=== PATIENT | female | born 1975 | race African-American/Black ===

== ENCOUNTER → 2016-12-23 | Outpatient (CLI) | payer MEDICARE, OTHER ==
[~2016-12-23] MED LIST: AMITIZA8 MCG PO; AMLODIPINE BESYL5 MG PO; ANEXSIA 7.5/3251 TA1 PO; ANTACID650 MG PO; B COMPLEX-VITA1 EACH PO; B-COMPLEX WITH1 EACH PO; BACITRACIN15 GM OINT TOP; BACTROBAN22 GM TP; BISACODYL5 M1 PO; COUMADIN PO; COUMADIN1 MG PO; COUMADIN4 MG PO; COUMADIN5 MG PO; COUMADIN6 MG PO; CRANBERRY500 M1 PO; CRANBERRY500 MG PO; CUBICIN IV; CULTURELLE CAP1 EAC1 PO; CULTURELLE CAP1 EACH PO; CULTURELLE IMM1 EACH PO; CULTURELLE KID1 EACH PO; DITROPAN; DITROPAN PO; DITROPAN XL PO; DITROPAN5 MG PO; DOCUSATE SODIU100 MG PO; DSS100 MG PO; FIBER500 MG PO; FLORASTOR250 M1 PO; FOLIC ACID PO; FOLIC ACID1 MG PO; GENTAMICIN100 MG/10; GENTLE LAXATIVE10 MG PR; HYDROCODON-ACE1 EAC9 PO; HYDROCODONE/APA1 T16 PO; KEPPRA500 M2 PO; LEVETIRACETAM250 MG PO; LEVOTHYROXINE25 MC1 PO; LEVOTHYROXINE25 MCG PO; LEVOTHYROXINE75 MCG PO; LINZESS145 MCG PO; LORTAB 7.5-3251 EACH PO; LYRICA PO; LYRICA100 MG PO; LYRICA200 MG PO; LYRICA25 MG PO; LYRICA50 MG PO; MAG-OXIDE PO; MAGOX 400400 MG PO; MEDROL PO; METOPROLOL SUCC25 MG PO; NEBCIN80 MG/2 ML IV; NEPHROCAPS1 CAP PO; NORCO 7.5-3251 EACH PO; NORVASC2.5 MG PO; OXYBUTYNIN5 MG/BOTTL PO; PANTOPRAZOLE SO40 MG PO; PERCOCET 5/321 UDTAB PO; PRENATAL S PO; PRENATAL VITAMI1 TA4 PO; PRENATAL VITAMI1 TA5 PO; PRO-AMATINE5 M1 PO; PROAMATINE10 MG PO; PROAMATINE2.5 MG PO; PROBIOTIC1 EAC3 PO; PROCRIT2000 U/ML; PROTONIX PO; RENAL SOFTGEL1 MG PO; RENALPREN SOFTGE1 MG PO; RENVELA800 MG PO; REQUIP2 MG PO; REZYST250 MG PO; SENSIPAR30 MG PO; SIMBRINZA 1%-0.28 ML; SIMBRINZA 1%-0.28 ML OS; SOD BICARBONATE PO; SYNTHROID25 MCG PO; TOPAMAX25 MG PO; TOPAMAX50 MG PO; VANCOMYCIN HCL1 GM IV; WARFARIN SODIUM1 M1 PO; ZINC SULFATE PO; ZINC SULFATE220 M1 PO; ZINC50 M1 PO; [UNRECOGNIZED DRUG - OTHER] PO
--- NOTE | ~2016-12-23 | US135 ---
[facility] A Service of [facility] RADIOLOGY TEXT RESULTS PATIENT: JUSTINE MARTEL LOCATION: CNIV : [birth year] UNIT #: [id number] AGE: [address]: Giuseppe Tilley MD SEX: F ORDER DR: [id number] [facility] [address] [place], [place] [address] [id number] O MR#: [id number] Acc #: [id number] NAME: JUSTINE MARTEL. : 1975 SEX: F STUDY DATE/TIME: 12/23/2016 12:15 UNIT: CNIV ROOM: STUDY DESCRIPTION: US U/L Ext Art Study Comp Oniel Attending Physician: Giuseppe Tilley M.D. Referring Physician: Giuseppe Tilley M.D. Ordering Physician: Giuseppe Tilley M.D. Primary Care Physician: Nella Bernal MEDICAL IMAGING REPORT This report is preliminary unless electronic signature is present EXAM Lower extremity arterial segmental pressures date of examination 12/23/2016 HISTORY Claudication. FINDINGS The right brachial pressure is 101. The left brachial pressure was not measured. The right upper thigh pressure is 86, lower thigh 81, calf 69, dorsalis pedis 75, posterior tibial 0, and toe 40 for an ankle to brachial index of 0.74. The left upper thigh pressure is 116, lower thigh 94, calf 78, dorsalis pedis 56, posterior tibial 73, and toe 92 for an ankle to brachial index of 0.72. Pulse volume recording tracings demonstrate dmaping of the amplitude of the signal at all levels in both legs. IMPRESSION Moderate ischemia of both legs. Ankle to brachial index is 0.74 on the right and 0.72 on the left. 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 Dictated by... Que Nunn M.D. THIS IS AN ELECTRONICALLY VERIFIED REPORT [facility] A Service of [facility] RADIOLOGY TEXT RESULTS PATIENT: JUSTINE MARTEL LOCATION: CNIV : [birth year] UNIT #: [id number] AGE: [address]: Giuseppe Tilley MD SEX: F ORDER DR: Que Nunn M.D. at 12/24/2016 7:41 AM STEPHEN/rnr TD: 12/23/2016 18:40 JOB #: [id number] MEDICAL IMAGING REPORT Page 1 of 1 COPY
== END | disposition home or self-care (01) ==
LOC: CNIV 12:04
DX: I73.9 Peripheral vascular disease, unspecified (principal); I74.5 Embolism and thrombosis of iliac artery; I74.3 Embolism and thrombosis of arteries of the lower extremities
CPT/HCPCS: 93923

== ENCOUNTER → 2017-01-20 | Day surgery (SDC) | payer MEDICARE, OTHER ==
--- NOTE | ~2017-01-20 | OR ---
Unit #: [id number] #: [id number] Patient: JUSTINE MARTEL [id number] [address] [address] [id number] O MR#: [id number] NAME: JUSTINE MARTEL. ROOM: Date of Procedure: 01/20/2017 Admission Date: 01/20/2017 Surgeon: Tor Stark M.D. : 1975 Attending Physician: Tor Stark M.D. Primary Care Physician: Nella Bernal OPERATIVE REPORT JOB NOTE: CC: PRIMARY CARE PHYSICIAN PROCEDURE PERFORMED Colonoscopy to cecum. INDICATIONS New onset constipation, undergoing colonoscopy for evaluation. MEDICATIONS Monitored anesthesia. POSTOPERATIVE FINDINGS 1. Normal colon exam to cecum. No polyps, masses, or colitis. 2. Internal hemorrhoids. PLAN Continue Linzess for now. We will add MiraLAX. DESCRIPTION OF PROCEDURE The patient was explained of the procedure, risks, and benefits along with risks and benefits of anesthesia. She was brought to the endoscopy room. Propofol anesthesia was given. Rectal exam was done, which was normal. Colonoscope was lubricated, passed up the rectum, advanced under direct vision all the way to the cecum. Cecum was identified by ileocecal valve and appendiceal orifice. Then, I started to pull the scope out carefully looking. No polyps, masses, or colitis. I retroflexed in the rectum, internal hemorrhoids noted. Gently the scope was pulled out. She tolerated it well. Dictated by... Snehal Soler/cedrick TD: 01/20/2017 11:14 JOB #: [id number] Unit #: [id number] #: [id number] Patient: JUSTINE MARTEL OPERATIVE REPORT Page 1 of 1 X Tor Stark MD X PROCEDURE OPERATIVE NOTE
== END | disposition home or self-care (01) ==
LOC: COPS 06:01
DX: K59.00 Constipation, unspecified (principal); K64.8 Other hemorrhoids; H54.41 Blindness, right eye, normal vision left eye; N18.9 Chronic kidney disease, unspecified; E66.01 Morbid (severe) obesity due to excess calories; Z68.41 Body mass index [BMI] 40.0-44.9, adult; Z87.01 Personal history of pneumonia (recurrent); Z88.5 Allergy status to narcotic agent; Z88.8 Allergy status to other drugs, medicaments and biological substances; Z79.01 Long term (current) use of anticoagulants; Z79.899 Other long term (current) drug therapy; Z93.0 Tracheostomy status; Z99.2 Dependence on renal dialysis; Z98.890 Other specified postprocedural states; Z89.421 Acquired absence of other right toe(s)

== ENCOUNTER 2017-02-04 23:15 | Inpatient (IN) | payer MEDICARE, OTHER ==
[~2017-02-04] VITALS: Ht 162.6 cm; Wt 117.5 kg
--- NOTE | ~2017-02-04 | DS ---
Unit #: [id number] #: [id number] Patient: JUSTINE MARTEL [id number] [address] [address] [id number] I MR#: [id number] NAME: JUSTINE MARTEL. ROOM: 325 Age: 41 Sex: F Admission Date: 02/05/2017 : 1975 Discharge Date: 02/12/2017 Attending Physician: Ivonne Alicea M.D. Primary Care Physician: Nella Bernal DISCHARGE SUMMARY DISCHARGE DIAGNOSIS Fever. DISCHARGE MEDICATIONS 1. Medrol Dosepak. 2. Midodrine 10 mg t.i.d. 3. Magnesium oxide 400 mg b.i.d. 4. Coumadin 6 mg p.o. daily. 5. Keppra 500 mg p.o. b.i.d. 6. Lyrica 200 mg p.o. b.i.d. 7. Requip 2 mg at bedtime. 8. Simbrinza eyedrops daily b.i.d. 9. Linzess 145 mcg p.o. daily. 10. Zinc sulfate 220 mg daily. 11. Sensipar 30 mg daily. 12. Percocet 5/325 mg 1 tablet q.6 h. p.r.n. 13. Protonix 40 mg daily. 14. Levothyroxine 25 mcg daily. 15. Nephrocaps daily. 16. Vancomycin per pharmacy dosing with hemodialysis treatment until 02/18/2017. DISPOSITION Going home per family request, [facility] to follow the patient at home. CONSULTANTS Dr. Vo, pulmonary. Dr. Staples, infectious disease. DIAGNOSTIC DATA IMAGING: Chest x-ray on admission, no definite active disease. LABORATORY: Blood cultures from 02/05/2017 show 1 or 2 coagulase negative staph species. Repeat blood culture so far negative. Stool culture negative for c-diff. HISTORY OF PRESENT ILLNESS/HOSPITAL COURSE Please refer to history and physical done my colleague for initial presentation for this patient. Fever: Questionable line sepsis and questionable bacteremia. Most likely secondary to skin contaminant. Status post infectious disease evaluation. Infectious disease recommends to continue vancomycin with hemodialysis Unit #: [id number] #: [id number] Patient: JUSTINE MARTEL treatment until 02/18/2017. History of Klippel-Trenaunay syndrome. Chronic hypertension: Continue midodrine. Questionable pneumonia: Status post pulmonary evaluation. Stable to be discharged. Chest x-ray unremarkable. Endstage renal disease: Continue hemodialysis per nephrology. Anemia of chronic disease: Discharge hemoglobin 9.8, hematocrit 29.4. History of DVT of chronic anticoagulation. Continue Coumadin. Monitor INR per home health. DISPOSITION Home. FOLLOWUP 1. Follow up with primary care physician next week. 2. Nephrology with hemodialysis. Dictated by... Snehal Go/lucho TD: 02/12/2017 07:05 JOB #: [id number] DISCHARGE SUMMARY Page 1 of 1 X Arthur Merritt MD X DISCHARGE SUMMARY
--- NOTE | ~2017-02-04 | CO ---
Unit #: [id number] #: [id number] Patient: JUSTINE MARTEL [id number] [address] [place], [place] [address] [id number] I MR#: [id number] NAME: JUSTINE MARTEL. ROOM: [facility] Age: 41 Sex: F Admission Date: 02/05/2017 : 1975 Attending Physician: Ivonne Alicea M.D. Primary Care Physician: Nella Bernal Consultation Date: 02/06/2017 CONSULTATION REPORT REASON FOR CONSULTATION Dialysis management. HISTORY The patient is a 41-year-old female, well known to the renal service, with a history of underlying Bilumsw-Zpqgwpjzf-Omkhl syndrome and ESRD on maintenance hemodialysis. The patient was admitted to the hospital yesterday following hypotension. On admission she was febrile. The patient's blood pressures were low at about 56/35. The patient has a history of chronic hypotension and is on midodrine for the same. However, the patient's blood pressures were lower than usual, and she was admitted for further evaluation. On admission the patient received a liter of normal saline in the ER. She also received vancomycin, Zithromax and Zosyn and was admitted to the ICU for pressor support. The patient is currently on Tate-Synephrine via a left IJ tunnelled dialysis catheter. The patient has a left IJ tunnelled dialysis catheter for dialysis. She has had multiple episodes of recurrent infections in this catheter over the years. The patient has poor vascular access and has hemihypertrophy that prevents us from placing a catheter on her right side. The patient recently, a few months ago, at [facility] had a catheter exchange done over a guidewire for a similar presentation. Currently the patient is lethargic and sleepy. She is maintained on pressors. She is mildly febrile. No events of shortness of breath, desaturation. She is tolerating the Tate-Synephrine, and her MAPs are in the 70s. The patient also has chronic thrombocytopenia and has been maintained chronically on warfarin for clots in the past. A CT scan of the abdomen and pelvis in the past has shown possible liver cirrhosis and splenomegaly. PAST MEDICAL HISTORY 1. ESRD, on hemodialysis every Tuesday, Tuesday and Tuesday. 2. Vccmaak-Tikodnmld-Sjobk syndrome. 3. Complications from multiple dialysis vascular accesses. 4. Right-sided hemihypertrophy. 5. Hypotension, chronic. 6. Chronic thrombocytopenia. 7. Chronic anticoagulation. SOCIAL HISTORY The patient is disabled and lives with her mother between care home admissions. She is nonambulatory. MEDICATIONS Unit #: [id number] #: [id number] Patient: DELONTE Medications include levothyroxine, midodrine, zinc, Sensipar, binders as needed, Coumadin, Requip, Lyrica, Mag-Ox, supplements, Protonix. PHYSICAL EXAMINATION VITAL SIGNS: The patient has a low-grade fever. T-max is 100.8. Blood pressure is currently in the MAPs of 75 with a systolic of 96 and diastolic of 54. Heart rate is mildly tachycardic at 106. GENERAL: The patient is lethargic, communicative when woken. No apparent distress. HEENT: Atraumatic. Diffuse erythematous rash across the face, chronic. She has a prosthetic right eye. NECK: No JVD. No lymphadenopathy. LUNGS: Clear to auscultation bilaterally with decreased air entry at the bases. HEART: S1, S2 present. No murmurs, rubs or gallops. Tachycardic. ABDOMEN: Obese, soft, nontender, nondistended. No guarding, rigidity or rebound. EXTREMITIES: Marked swelling of the left side. Patient with left tunnelled dialysis catheter along with left IJ central line placed. DIAGNOSTIC STUDIES LABS: Labs are significant for a white count of 11.4, sodium of 136, potassium 4.9, chloride 105, CO2 21, calcium 7.6, phosphorous 1.2, magnesium 1.9, albumin 3.3. Hemoglobin is 10.5 and platelets of 43. Blood cultures are no growth to date. IMAGING: Chest x-ray is negative. ASSESSMENT AND PLAN 1. ESRD, usual dialysis schedule is Tuesday, Tuesday and Tuesday. The patient's volume status and labs are within normal limits today, and there is no indication for dialysis at this time. 2. Sepsis/shock. The patient's white count is rising, and she has a low-grade fever. Multiple episodes of tunnelled rndeempj-xgzftjpp-amaklao sepsis in the past. Blood cultures are negative for now. Chest x-ray is negative for pneumonia. The patient is currently maintained on antibiotics. ID has been consulted, and I agree with this. The patient may need a dialysis catheter exchange done. It will be very difficult to change the exit site of the dialysis catheter if removed given her poor vascular access issues in the past. Hopefully the patient will respond to antibiotics and will not require a catheter change. 3. Electrolytes. The patient has significant hypophosphatemia. She is not on any binders at this time. We will go ahead and replace sodium phosphate now. 4. Chronic hypotension. The patient is on midodrine and need to consider restarting this. 5. Hwimpxi-Gwlxwwmrl-Cwgvs syndrome. 6. Chronic thrombocytopenia, per primary. PLAN 1. No need for HD today. Will evaluate for (1) in the morning depending on the patient's pressor requirements and blood pressures. Will decide between SLED versus hemodialysis. Continue to wean pressors as possible. Maintain MAPs above 60 given her underlying chronic hypotension. 2. Replace phosphorous. 3. Continue antibiotics. Unit #: [id number] #: [id number] Patient: DELONTESeptember 4. Await cultures. Will closely follow this patient. Thank you for the consultation. Dictated by... Malka Quijano M.D. HERMAN/christie TD: 02/06/2017 11:29 JOB #: [id number] CONSULTATION REPORT Page 1 of 1 X X CONSULTATION REPORT
--- NOTE | ~2017-02-04 | A ---
[facility] Nutrition Therapy DATE: 02/07/17 Patient: JUSTINE MARTEL Physician: LIZZY Address: [address] Room/Bed: [address], Zip: [place] [address] Admit Date: 02/05/17 Date of : [birth year] Height: 5 4 Weight: 264 120 NUTRITIONAL ASSESSMENT: REASON: 1 point nutrition screen risk RE: wound/ Pressure ulcer, also for high BMI documentation 41 yo female admitted for sepsis, hypotension PMH: ESRD on HD, Klippel Trenaunay Delavan Syndrome, HTN, ZAINAB, DVT Anthropometrics: Ht: 5'4" Adm wt: 114 kg BMI: 43.1 Diet: Regular Assessment: Chart reviewed, events noted. 41 yo female admitted for sepsis and hypotension. RD received 1 point from malnutrition nursing screen for a wound/ pressure ulcer, and also documenting high BMI. RN reports that the area on the pt's coccyx/ sacrum is more consistent with a skin tear, and not a stage II pressure ulcer or greater (point received not appropriate). RN reproted at round that the pt consumed 100% of her breakfast, and feeds herself well. Pt received HD today, with h/o ESRD on HD. Please see recommendations below. Recommendations: 1. Add renal/ HH diet restriction due to the pt's PMH and obesity. 2. Consult RD for any further nutritional needs. Respectfully, BRANDI MILLER RD, LD Food and Nutritional Services [facility] cc: client file
--- NOTE | ~2017-02-04 | EKG ---
PATIENT: DELONTESeptember UNIT #: [id number] Ventricular Rate: 141 BPM Atrial Rate: 141 BPM P-R Interval: 116 ms QRS Duration: 74 ms Q-T Interval: 282 ms QTC Calculation(Bezet): 431 ms P Holbrook: 21 degrees Calculated R Holbrook: 12 degrees Calculated T Holbrook: 18 degrees Diagnosis Line: Sinus tachycardia Diagnosis Line: Low voltage QRS Diagnosis Line: Borderline ECG Diagnosis Line: When compared with ECG of 08-JUL-2016 13:09, Diagnosis Line: No significant change was found Diagnosis Line: Confirmed by HUY TIWARI MD ([id number]) on Diagnosis Line: 02/06/2017 4:47:18 PM INTERPRETING MD: RENATA
--- NOTE | ~2017-02-04 | CO ---
Unit #: [id number] #: [id number] Patient: JUSTINE MARTEL [id number] [address] [place], [place] [address] [id number] I MR#: [id number] NAME: JUSTINE MARTEL. ROOM: [facility] Age: 41 Sex: F Admission Date: 02/05/2017 : 1975 Attending Physician: Ivonne Alicea M.D. Primary Care Physician: Nella Bernal Consultation Date: 02/05/2017 CONSULTATION REPORT REASON FOR CONSULTATION Critical care management. CHIEF COMPLAINT 41-year-old female, previous history of Hwosepp-Jmzqyzqxp-Bkawe syndrome, end-stage renal disease on hemodialysis, history of DVT, brought in from the dialysis center with low blood pressure of 56/35 and complaining of fever. Started on IV antibiotics, admitted to Intensive Care Unit. I am seeing the patient at bedside complaining of mild shortness of breath. Denies any nausea, vomiting, diarrhea. REVIEW OF SYSTEMS Positive for pallor. Positive for edema. No cyanosis, no jaundice. The rest as per History of Present Illness. PAST MEDICAL HISTORY 1. End stage renal disease. 2. Blwpgfa-Lspniwtna-Bnudj syndrome. 3. Complication of multiple dialysis and vascular access. 4. Right sided hemihypertrophy. 5. Hypertension. 6. Thrombocytopenia. 7. Obstructive sleep apnea. 8. DVT. 9. Chronic anticoagulation. SOCIAL HISTORY Nonsmoker. No alcohol, no drug abuse. MEDICATIONS As per MAR, has been reviewed. PHYSICAL EXAMINATION VITAL SIGNS: Temperature 98, pulse 87, respirations 12, blood pressure 100/70. NEUROLOGICAL: Awake, alert, oriented. No neuro deficit. HEENT: PERRLA. NECK: Supple. No JVD. CHEST: Bilateral air entry, bilateral mild rhonchi. GI: Nontender, soft. Bowel sounds positive. EXTREMITIES: Positive edema. DIAGNOSTIC STUDIES Unit #: [id number] #: [id number] Patient: JUSTINE MARTEL Labs and imaging has been reviewed. ASSESSMENT AND PLAN 1. Septic shock. 2. End stage renal disease. 3. Thrombocytopenia. 4. Chronic anticoagulation. Plan is to continue patient on broad spectrum IV antibiotic. Continue oxygen, bronchodilator and IV pressors. Patient will be closely monitored. Please see orders for detailed plan. Thank you very much for this consultation. Dictated by... Snehal Clarke TD: 02/07/2017 07:19 JOB #: [id number] CONSULTATION REPORT Page 1 of 1 X Michelle Vo MD X CONSULTATION REPORT
--- NOTE | ~2017-02-04 | OR ---
Unit #: [id number] #: [id number] Patient: JUSTINE MARTEL [address] [address] [id number] I MR#: [id number] NAME: JUSTINE MARTEL. ROOM: [facility] Date of Procedure: 02/05/2017 Admission Date: 02/05/2017 Surgeon: Michelle Vo M.D. : 1975 Attending Physician: Ivonne Alicea M.D. Primary Care Physician: Nella Bernal PROCEDURE OPERATIVE NOTE PROCEDURE Central venous catheter placement. INDICATION Septic shock. PRE-PROCEDURE DIAGNOSIS Septic shock. DETAIL OF THE PROCEDURE After placing patient in a proper position, the left side of the neck was prepped with ChloraPrep. Under all sterile fashion with modified Seldinger technique, under ultrasound guidance, a triple lumen triple venous catheter placed in the left internal jugular central vein. All three ports were flushed and working. Guidewire was removed in toto. Suture was applied to secure the line. A sterile dressing was applied. Post procedure chest x-ray was ordered. No complication happened. Patient tolerated the procedure very well. Dictated by... Snehal Clarke/ankit TD: 02/07/2017 07:26 JOB #: [id number] PROCEDURE OPERATIVE NOTE Page 1 of 1 X Michelle Vo MD PROCEDURE OPERATIVE NOTE
--- NOTE | ~2017-02-04 | HP ---
Unit #: [id number] #: [id number] Patient: JUSTINE MARTEL [id number] [address] [place], [place] [address] [id number] I MR#: [id number] NAME: JUSTINE MARTEL ROOM: 325 Age: 41 Sex: F Admission Date: 02/05/2017 : 1975 Attending Physician: Ivonne Alicea M.D. Primary Care Physician: Nella Bernal HISTORY AND PHYSICAL CHIEF COMPLAINT Low blood pressure post dialysis. HISTORY OF PRESENT ILLNESS The patient is a 41-year-old female who is very well known to me with multiple medical problems. She has a history of Radqorr-Nphxdpvtt-Sbgio syndrome. The patient is on dialysis. She was noted to have low blood pressure after the dialysis. She kind of runs low most of the time. She is on midodrine. The patient was very fatigued and tired and maybe she had a temperature. She does complain of some dizziness. Her appetite is reduced. She does not complain of shortness of breath more than normal. No complaint of chest pain. She does have some foot ulcers. The patient has had multiple bacteremia and vascular access infection in the past. The patient was admitted to the ICU because of possible sepsis. PAST MEDICAL HISTORY 1. Endstage renal disease on hemodialysis. 2. Chronic thrombocytopenia. 3. Chronic anticoagulation therapy for DVT. 4. History of Ecrczwp-Dadzdgnnd-Hnjlx syndrome. 5. History of seizures. 6. History of chronic constipation. 7. History of GERD. 8. History of hypothyroidism. 9. History of obstructive sleep apnea. PAST SURGICAL HISTORY 1. Multiple IV accesses for hemodialysis. 2. 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 3. History of tracheostomy in the past. 4. History of AV shunt placement for dialysis. SOCIAL HISTORY The patient lives at home with her mother. No history of smoking, alcohol or drug abuse. FAMILY HISTORY History of hypertension is present. ALLERGIES Zofran, morphine and labetalol. HOME MEDICATIONS Please refer to medication reconciliation which has been done at length. Unit #: [id number] #: [id number] Patient: JUTSINE MARTEL REVIEW OF SYSTEMS As per history of presenting illness. The patient's mother was not in the room during the examination and questionnaire. PHYSICAL EXAMINATION GENERAL: The patient was admitted to the ICU at [facility], examined in the ICU. VITALS: Blood pressure 107/62, respiratory rate 20, saturations 98%, pulse 70. HEENT: Head is normocephalic. NECK: Supple. CHEST: Decreased air entry bilaterally. Some wheezing is heard. HEART: S1 and S2 positive. Murmur is heard. ABDOMEN: Soft and nontender. Bowel sounds are positive. EXTREMITIES: The patient does have lymphedema which is chronic. SKIN: The patient does have chronic skin issues from her Kqtsugq-Asvvghjht-Kukjv syndrome. NEUROLOGIC: AGRICULTURAL EXTENSION AGENT, the patient is awake, alert and oriented times three. DIAGNOSTIC STUDIES LABORATORY: Lactic acid 3.2, WBC 14.2, bicarb 20, creatinine 6.1. ASSESSMENT The patient was admitted to the ICU with 1. Sepsis. 2. Pneumonia. 3. Hypotension. 4. Fever, source was unknown at this time. Rule out tunnelled catheter infection. History of multiple infections in the past. 5. Endstage renal disease on hemodialysis. 6. History of DVT on anticoagulation therapy. 7. Chronic thrombocytopenia. 8. History of Kdowuiv-Itcprwelc-Owwmj syndrome. PLAN Admit to ICU. Dr. Sood has been consulted for renal hemodialysis. Infectious disease has been consulted. Blood cultures done. Panculture done. Home medications reviewed and adjusted. Dr. Vo has been consulted. Plan of care has been discussed with the patient at length. Dictated by Snehal Kidd TD: 02/23/2017 14:37 JOB #: [id number] Unit #: [id number] #: [id number] Patient: DELONTE HISTORY AND PHYSICAL Page 1 of 1 X Ivonne Alicea MD HISTORY AND PHYSICAL
--- NOTE | ~2017-02-04 | CR72 ---
[facility] A Service of [facility] RADIOLOGY TEXT RESULTS PATIENT: JUSTINE MARTEL LOCATION: [address] : [birth year] UNIT #: [id number] AGE: [address]: Uri Blanco MD SEX: F ORDER DR: [id number] [facility] [address] [facility]. [place], [place] [address] [id number] MR#: [id number] Acc #: [id number] NAME: JUSTINE MARTEL. : 1975 SEX: F STUDY DATE/TIME: 02/05/2017 0:04 UNIT: [facility] ROOM: [facility] STUDY DESCRIPTION: CR Chest Single View Portable Attending Physician: Uri Blanco M.D. Ordering Physician: Perdo Goss M.D. Primary Care Physician: Nella Bernal MEDICAL IMAGING REPORT This report is preliminary unless electronic signature is present EXAM Chest x-ray, 02/05/2017 HISTORY 41-year-old female in the ED with fever, cough and weakness beginning today. TECHNIQUE AP portable upright chest x-ray FINDINGS The examination is limited by patient body habitus. Mild cardiomegaly is stable and pulmonary vascularity is normal. Dialysis catheter in place. Chronic rounded atelectasis and pleural thickening is present in the right lung base, best demonstrated on two prior chest CT studies in June 2006 and October 2015. Remaining portions of both lungs are clear. Lung volumes are chronically low. IMPRESSION 1. No definite active disease. 2. Stable cardiomegaly. 3. Chronic rounded atelectasis and pleural thickening in the right lung base. Dictated by... Rogelio Lance M.D. THIS IS AN ELECTRONICALLY VERIFIED REPORT Rogelio Lance M.D. at 02/05/2017 3:53 PM Yanira TD: 02/05/2017 11:49 JOB #: [id number] [facility] A Service of [facility] RADIOLOGY TEXT RESULTS PATIENT: DELONTESeptember LOCATION: [address] : [birth year] UNIT #: [id number] AGE: [address]: Uri Blanco MD SEX: F ORDER DR: MEDICAL IMAGING REPORT Page 1 of 1 COPY
--- NOTE | ~2017-02-04 | CR72 ---
[facility] A Service of [facility] RADIOLOGY TEXT RESULTS PATIENT: JUSTINE MARTEL LOCATION: [address] : [birth year] UNIT #: [id number] AGE: [address]: Ivonne Alicea MD SEX: F ORDER DR: [id number] [facility] [address]. [place], [place] [address] [id number] MR#: [id number] Acc #: [id number] NAME: JUSTINE MARTEL. : 1975 SEX: F STUDY DATE/TIME: 02/05/2017 12:20 UNIT: [facility] ROOM: [facility] STUDY DESCRIPTION: CR Chest Single View Portable Attending Physician: Uri Blanco M.D. Ordering Physician: Michelle Vo M.D. Primary Care Physician: Nella Bernal MEDICAL IMAGING REPORT This report is preliminary unless electronic signature is present EXAM Portable chest x-ray, 02/05/2017. HISTORY Line placement sepsis, short of air, hypertension today. TECHNIQUE AP radiograph of the chest is presented. COMPARISON 02/05/2017, 00:04 minutes. FINDINGS Tunneled left internal jugular approach central venous catheter unchanged terminating in mid-right atrium. Interval placement of a new left internal jugular approach central venous catheter which terminates in the superior vena cava. The study is suboptimal due to poor patient positioning. Patient in left anterior oblique projection. Cardiomediastinal contours unchanged given obliquity. Worsening appearance of the lungs. There appears to be increased vascular congestion. Increased interstitial and airspace densities in the bilateral mid to lower lung zones, most consistent with increasing pulmonary edema. Dense right retrocardiac opacification likely due to obliquity and soft tissue attenuation from the heart, pleural effusion, and underlying airspace disease which may reflect components of edema and/or atelectasis. There is a new small right pleural effusion. No pneumothorax. Dictated by... Bolivar Chaparro M.D. [facility] A Service of [facility] RADIOLOGY TEXT RESULTS PATIENT: JUSTINE MARTEL LOCATION: [facility]3-23 : [birth year] UNIT #: [id number] AGE: [address]: Ivonne Alicea MD SEX: F ORDER DR: THIS IS AN ELECTRONICALLY VERIFIED REPORT Bolivar Chaparro M.D. at 02/06/2017 9:31 PM Aileen TD: 02/05/2017 15:32 JOB #: [id number] MEDICAL IMAGING REPORT Page 1 of 1 COPY
[~2017-02-04 23:15] MED LIST changes: -LEVETIRACETAM250 MG PO; -MEDROL PO; -PERCOCET 5/321 UDTAB PO; -VANCOMYCIN HCL1 GM IV
[2017-02-05 00:08] LABS: POC - CKMB <1.0 ng/mL (0.0-7.9); POC - TROPONIN <0.05 ng/mL (<=0.05)
[2017-02-05 00:15] LABS: INR 2.5; PARTIAL THROMBOPLASTIN TIME 51.6 SECONDS (23.5-31.3)
[2017-02-05 00:17] LABS: ARTERIAL BLD GAS O2 SATURATION 93.6 % (90.0-100.0); ARTERIAL BLOOD GAS CARBOXY HB 1.6 %sat (0.0-9.0); ARTERIAL BLOOD GAS HCO3 21.7 mmol/L; ARTERIAL BLOOD GAS MET HB 0.9 %sat (0.0-2.0); ARTERIAL BLOOD GAS PCO2 26.5 mmHg (35.0-45.0); ARTERIAL BLOOD GAS PO2 76.1 mmHg (80.0-100); ARTERIAL BLOOD GAS pH 7.522 (7.350-7.450); ARTERIAL DRAW? YES
[2017-02-05 00:17] LABS: BASOPHIL% 0.2 % (0-2.5); HEMATOCRIT 34.2 % (35.0-45.0); HEMOGLOBIN 11.1 gm/dL (12.0-16.0); LYMPHOCYTE# 0.6 X10e3 (1.0-3.5); LYMPHOCYTE% 5.3 % (17.0-45.0); MEAN CELL VOLUME 93.8 FL (83-96); MEAN CORPUSCULAR HEMOGLOBIN 30.5 PG (28-34); MEAN CORPUSCULAR HGB CONC 32.5 g/dL (30-36); MEAN PLATELET VOLUME 12.8 FL (6.5-11.5); MONOCYTE# 0.3 X10e3 (0-1.0); MONOCYTE% 3.3 % (3.0-12.0); NEUTROPHIL# 9.6 X10e3 (1.5-7.1); NEUTROPHIL% 91.2 % (40-75); PROTHROMBIN TIME (PATIENT) 27.4 SECONDS (10.0-11.7); RED BLOOD COUNT 3.65 X10e (3.90-5.30); RED CELL DISTRIBUTION WIDTH 18.9 % (11.0-15.5); WHITE BLOOD COUNT 10.5 X10e3 (4.0-10.5)
[2017-02-05 00:18] LABS: ARTERIAL BLOOD GAS ART SITE RIGHT BRACHIAL; ARTERIAL BLOOD GAS DELIVERY NASAL CANNULA
[2017-02-05 00:18] LABS: DIFF IND YES; PLATELET COUNT 56 X10e3 (140-420)
[2017-02-05 00:26] LABS: BILIRUBIN, DIRECT 0.4 mg/dL (0.0-0.2); BILIRUBIN,INDIRECT 1.4 mg/dL (0.0-0.9); BILIRUBIN,TOTAL 1.8 mg/dL (0.2-2.0); BUN/CREATININE RATIO 4.8; CALCIUM SERUM 8.7 mg/dL (8.4-10.2); CREATININE SERUM 5.2 mg/dL (0.6-1.4); GLOM FILT RATE Estimated 11.1 mL/min (>60); MAGNESIUM 1.9 mg/dL (1.6-3.0); PHOSPHOROUS 1.2 mg/dL (2.5-4.6); POTASSIUM 4.6 mmol/L (3.5-5.1); PROTEIN TOTAL SERUM 8.7 g/dL (6.0-8.3)
[2017-02-05 00:27] LABS: ANISOCYTOSIS MOD; SMUDGE CELLS 30 /100; TEAR DROP CELLS PRESENT
[2017-02-05 00:28] LABS: PLATELET ESTIMATE DECREASED (NORMAL)
[2017-02-05 00:29] LABS: DIFFERENTIAL COMMENT OCC GIA.PLT.E; POIKILOCYTOSIS SL
[2017-02-05 04:06] LABS: BASOPHIL% 0.1 % (0-2.5); BUN/CREATININE RATIO 5.09; CALCIUM SERUM 7.9 mg/dL (8.4-10.2); CREATININE SERUM 5.1 mg/dL (0.6-1.4); GLOM FILT RATE Estimated 11.4 mL/min (>60); HEMATOCRIT 31.3 % (35.0-45.0); HEMOGLOBIN 10.1 gm/dL (12.0-16.0); LYMPHOCYTE# 0.4 X10e3 (1.0-3.5); LYMPHOCYTE% 3.9 % (17.0-45.0); MEAN CELL VOLUME 94.9 FL (83-96); MEAN CORPUSCULAR HEMOGLOBIN 30.5 PG (28-34); MEAN CORPUSCULAR HGB CONC 32.2 g/dL (30-36); MEAN PLATELET VOLUME 12.1 FL (6.5-11.5); MONOCYTE# 0.3 X10e3 (0-1.0); MONOCYTE% 3.2 % (3.0-12.0); NEUTROPHIL# 9.5 X10e3 (1.5-7.1); NEUTROPHIL% 92.8 % (40-75); POTASSIUM 4.1 mmol/L (3.5-5.1); WHITE BLOOD COUNT 10.2 X10e3 (4.0-10.5)
[2017-02-05 04:14] LABS: DIFF IND NO; PLATELET COUNT 47 X10e3 (140-420)
[2017-02-05 09:19] LABS: INR 2.9; PROTHROMBIN TIME (PATIENT) 32.1 SECONDS (10.0-11.7)
[2017-02-06 04:44] LABS: BASOPHIL% 0.1 % (0-2.5); HEMOGLOBIN 10.5 gm/dL (12.0-16.0); LYMPHOCYTE# 0.2 X10e3 (1.0-3.5); LYMPHOCYTE% 1.3 % (17.0-45.0); MEAN CELL VOLUME 93.1 FL (83-96); MEAN CORPUSCULAR HEMOGLOBIN 30.6 PG (28-34); MEAN CORPUSCULAR HGB CONC 32.9 g/dL (30-36); MEAN PLATELET VOLUME 11.4 FL (6.5-11.5); MONOCYTE# 0.5 X10e3 (0-1.0); MONOCYTE% 4.3 % (3.0-12.0); NEUTROPHIL# 10.8 X10e3 (1.5-7.1); NEUTROPHIL% 94.3 % (40-75); RED BLOOD COUNT 3.44 X10e (3.90-5.30); RED CELL DISTRIBUTION WIDTH 19.2 % (11.0-15.5); WHITE BLOOD COUNT 11.4 X10e3 (4.0-10.5)
[2017-02-06 04:48] LABS: PLATELET COUNT 43 X10e3 (140-420)
[2017-02-06 04:49] LABS: DIFF IND NO
[2017-02-06 04:53] LABS: INR 3.2; PROTHROMBIN TIME (PATIENT) 34.3 SECONDS (10.0-11.7)
[2017-02-06 05:27] LABS: ALBUMIN SERUM 3.3 g/dL (3.5-5.0); BILIRUBIN,TOTAL 1.2 mg/dL (0.2-2.0); BUN/CREATININE RATIO 7.38; CALCIUM SERUM 7.6 mg/dL (8.4-10.2); CREATININE SERUM 6.5 mg/dL (0.6-1.4); GLOM FILT RATE Estimated 8.5 mL/min (>60); POTASSIUM 4.9 mmol/L (3.5-5.1); PROTEIN TOTAL SERUM 7.4 g/dL (6.0-8.3)
[2017-02-07 05:17] LABS: BASOPHIL% 0.1 % (0-2.5); EOSINOPHIL% 0.1 % (0.0-7.0); HEMATOCRIT 28.7 % (35.0-45.0); HEMOGLOBIN 9.6 gm/dL (12.0-16.0); LYMPHOCYTE# 0.2 X10e3 (1.0-3.5); LYMPHOCYTE% 1.9 % (17.0-45.0); MEAN CELL VOLUME 92.5 FL (83-96); MEAN CORPUSCULAR HEMOGLOBIN 30.9 PG (28-34); MEAN CORPUSCULAR HGB CONC 33.4 g/dL (30-36); MEAN PLATELET VOLUME 11.5 FL (6.5-11.5); MONOCYTE# 0.4 X10e3 (0-1.0); MONOCYTE% 4.2 % (3.0-12.0); NEUTROPHIL# 7.9 X10e3 (1.5-7.1); NEUTROPHIL% 93.7 % (40-75); WHITE BLOOD COUNT 8.4 X10e3 (4.0-10.5)
[2017-02-07 05:19] LABS: INR 4.1; PROTHROMBIN TIME (PATIENT) 44.1 SECONDS (10.0-11.7)
[2017-02-07 05:35] LABS: DIFF IND NO; PLATELET COUNT 36 X10e3 (140-420)
[2017-02-07 06:29] LABS: BILIRUBIN,TOTAL 0.7 mg/dL (0.2-2.0); BUN/CREATININE RATIO 9.72; CALCIUM SERUM 7.8 mg/dL (8.4-10.2); CREATININE SERUM 7.4 mg/dL (0.6-1.4); GLOM FILT RATE Estimated 7.3 mL/min (>60); MAGNESIUM 1.9 mg/dL (1.6-3.0); PHOSPHOROUS 3.3 mg/dL (2.5-4.6); POTASSIUM 4.5 mmol/L (3.5-5.1); PROTEIN TOTAL SERUM 7.2 g/dL (6.0-8.3)
[2017-02-08 05:27] LABS: BASOPHIL% 0.2 % (0-2.5); HEMATOCRIT 27.4 % (35.0-45.0); HEMOGLOBIN 9.3 gm/dL (12.0-16.0); LYMPHOCYTE# 0.2 X10e3 (1.0-3.5); LYMPHOCYTE% 3.4 % (17.0-45.0); MEAN CELL VOLUME 91.6 FL (83-96); MEAN CORPUSCULAR HGB CONC 33.8 g/dL (30-36); MEAN PLATELET VOLUME 11.4 FL (6.5-11.5); MONOCYTE# 0.3 X10e3 (0-1.0); MONOCYTE% 4.5 % (3.0-12.0); NEUTROPHIL# 6.8 X10e3 (1.5-7.1); NEUTROPHIL% 91.9 % (40-75); RED BLOOD COUNT 2.99 X10e (3.90-5.30); RED CELL DISTRIBUTION WIDTH 18.7 % (11.0-15.5); WHITE BLOOD COUNT 7.4 X10e3 (4.0-10.5)
[2017-02-08 05:33] LABS: DIFF IND NO; PLATELET COUNT 36 X10e3 (140-420)
[2017-02-08 06:01] LABS: INR 2.9; PROTHROMBIN TIME (PATIENT) 32.1 SECONDS (10.0-11.7)
[2017-02-08 06:43] LABS: BUN/CREATININE RATIO 11.52; CALCIUM SERUM 7.7 mg/dL (8.4-10.2); CREATININE SERUM 4.6 mg/dL (0.6-1.4); GLOM FILT RATE Estimated 12.9 mL/min (>60); MAGNESIUM 1.8 mg/dL (1.6-3.0); PHOSPHOROUS 2.2 mg/dL (2.5-4.6); POTASSIUM 3.9 mmol/L (3.5-5.1)
[2017-02-09 05:48] LABS: INR 2.8; PROTHROMBIN TIME (PATIENT) 30.7 SECONDS (10.0-11.7)
[2017-02-09 06:02] LABS: BASOPHIL% 0.1 % (0-2.5); HEMOGLOBIN 8.7 gm/dL (12.0-16.0); LYMPHOCYTE# 0.3 X10e3 (1.0-3.5); LYMPHOCYTE% 5.6 % (17.0-45.0); MEAN CELL VOLUME 91.1 FL (83-96); MEAN CORPUSCULAR HEMOGLOBIN 30.4 PG (28-34); MEAN CORPUSCULAR HGB CONC 33.4 g/dL (30-36); MONOCYTE# 0.3 X10e3 (0-1.0); MONOCYTE% 6.7 % (3.0-12.0); NEUTROPHIL# 4.5 X10e3 (1.5-7.1); NEUTROPHIL% 87.6 % (40-75); RED BLOOD COUNT 2.86 X10e (3.90-5.30); RED CELL DISTRIBUTION WIDTH 18.3 % (11.0-15.5); WHITE BLOOD COUNT 5.2 X10e3 (4.0-10.5)
[2017-02-09 06:07] LABS: DIFF IND YES; PLATELET COUNT 32 X10e3 (140-420)
[2017-02-09 06:24] LABS: BUN/CREATININE RATIO 14.31; CREATININE SERUM 5.8 mg/dL (0.6-1.4); GLOM FILT RATE Estimated 9.7 mL/min (>60); POTASSIUM 3.5 mmol/L (3.5-5.1)
[2017-02-09 06:33] LABS: ANISOCYTOSIS SL; PLATELET ESTIMATE DECREASED (NORMAL)
[2017-02-10 04:01] LABS: INR 2.1; PROTHROMBIN TIME (PATIENT) 22.5 SECONDS (10.0-11.7)
[2017-02-10 04:27] LABS: BUN/CREATININE RATIO 14.52; CALCIUM SERUM 7.9 mg/dL (8.4-10.2); CREATININE SERUM 4.2 mg/dL (0.6-1.4); GLOM FILT RATE Estimated 14.4 mL/min (>60); POTASSIUM 3.7 mmol/L (3.5-5.1)
[2017-02-10 04:37] LABS: HEMATOCRIT 29.5 % (35.0-45.0); HEMOGLOBIN 9.6 gm/dL (12.0-16.0); MEAN CELL VOLUME 91.9 FL (83-96); MEAN CORPUSCULAR HEMOGLOBIN 29.9 PG (28-34); MEAN CORPUSCULAR HGB CONC 32.6 g/dL (30-36); MEAN PLATELET VOLUME 11.8 FL (6.5-11.5); RED BLOOD COUNT 3.21 X10e (3.90-5.30); RED CELL DISTRIBUTION WIDTH 18.5 % (11.0-15.5)
[2017-02-11 05:18] LABS: HEMATOCRIT 29.4 % (35.0-45.0); HEMOGLOBIN 9.8 gm/dL (12.0-16.0); MEAN CELL VOLUME 92.3 FL (83-96); MEAN CORPUSCULAR HEMOGLOBIN 30.7 PG (28-34); MEAN CORPUSCULAR HGB CONC 33.3 g/dL (30-36); MEAN PLATELET VOLUME 11.4 FL (6.5-11.5); RED BLOOD COUNT 3.19 X10e (3.90-5.30); RED CELL DISTRIBUTION WIDTH 18.4 % (11.0-15.5); WHITE BLOOD COUNT 6.6 X10e3 (4.0-10.5)
[2017-02-11 06:29] LABS: CALCIUM SERUM 7.6 mg/dL (8.4-10.2); CREATININE SERUM 5.6 mg/dL (0.6-1.4); GLOM FILT RATE Estimated 10.2 mL/min (>60); POTASSIUM 3.7 mmol/L (3.5-5.1)
[2017-02-12] MEDS ORDERED: LEVETIRACETAM250 MG PO (00:31)
[2017-02-12] MEDS ORDERED: PERCOCET 5/321 UDTAB PO (01:07)
[2017-02-12 05:27] LABS: INR 2.1; PROTHROMBIN TIME (PATIENT) 22.7 SECONDS (10.0-11.7)
[2017-02-12] MEDS ORDERED: VANCOMYCIN HCL1 GM IV (10:06)
[2017-02-12] MEDS ORDERED: MEDROL PO (10:06)
== END 2017-02-12 11:42 | disposition home health service (06) | DRG 314 ==
LOC: CED 23:15 → C3A PCU 02-05 01:05 → CEDOF 02-05 01:05 → CICCU3 02-05 01:05 → CED 02-05 01:14 → CEDOF 02-05 01:14 → CICCU3 02-05 11:04 → CEDOF 02-05 11:04 → C3A PCU 02-09 16:59
PROVIDERS: Emergency Medicine; Hospitalist; Internal Medicine; Internal Medicine Nephrology; Internal Medicine Pulmonary Disease; Physician Assistant Medical
PROC: 5A1D60Z (ICD-10-PCS; principal; 2017-02-07)
DX: T82.7XXA Infection and inflammatory reaction due to other cardiac and vascular devices, implants and grafts, initial encounter (principal); A41.9 Sepsis, unspecified organism; N18.6 End stage renal disease; R65.21 Severe sepsis with septic shock; J96.01 Acute respiratory failure with hypoxia; J18.9 Pneumonia, unspecified organism; I12.0 Hypertensive chronic kidney disease with stage 5 chronic kidney disease or end stage renal disease; D69.6 Thrombocytopenia, unspecified; Q87.2 Congenital malformation syndromes predominantly involving limbs; E87.2 Acidosis; R87.2 Abnormal level of other drugs, medicaments and biological substances in specimens from female genital organs; I73.9 Peripheral vascular disease, unspecified; R19.7 Diarrhea, unspecified; Z99.2 Dependence on renal dialysis; D63.1 Anemia in chronic kidney disease; Z86.718 Personal history of other venous thrombosis and embolism; Z79.01 Long term (current) use of anticoagulants
CPT/HCPCS: 36415; 36430; 36600; 71010; 80048; 80053; 80076; 80202; 82308; 82553; 82803; 82947; 83605; 83690; 83735; 84100; 84484; 85025; 85027; 85610; 85730; 87040; 87493; 93005; 94760; 94761; 96361; 96365; 97110; 97162; 97166; 97530; 99285; G8978-GP; G8979-GP; G8987-GO; G8988-GO; G8989-GO; J0456; J1644; J1720; J2370; J2501; J2543; J2550; J2765; J3260; J3370; P9047; Q4081